=== PATIENT | female | born 1940 | race Hispanic/Latino ===

== ENCOUNTER 2021-12-30 05:52 | Observation (INO) | payer OTHER ==
[2021-12-25 12:13] LABS: BASOPHILS % (AUTO) 0.5 % (0.0-5.0); EOSINOPHILS % (AUTO) 0.9 % (0.0-8.0); HEMATOCRIT 32.2 % (36-48); LYMPHOCYTES % (AUTO) 18.3 % (21.0-51.0); MEAN CORPUSCULAR HGB CONC 31.7 g/dL (32.0-36.0); MEAN CORPUSCULAR VOLUME 88.5 fL (79-99); MONOCYTES % (AUTO) 6.9 % (3.0-13.0); PLATELET COUNT (AUTO) 363 K/uL (130-400); RED BLOOD CELL COUNT(AUTO) 3.64 MIL/uL (4.00-5.50); RED CELL DISTRIBUTION WIDTH 13.8 % (11.0-15.5); WHITE BLOOD COUNT (AUTO) 9.9 K/uL (4.8-10.8)
[2021-12-25 12:22] LABS: INR 1.04 (0.85-1.15); PROTHROMBIN TIME 11.3 SEC (9.6-11.6)
[2021-12-25 12:24] LABS: PARTIAL THROMBOPLASTIN TIME 29.8 SEC (26.3-35.5)
[2021-12-25 12:48] LABS: CREATININE 0.9 mg/dL (0.5-1.5); POTASSIUM 4.5 mmol/L (3.5-5.1)
[2021-12-26 09:37] VITALS: BP 163/81
[~2021-12-30] VITALS: Ht 152.4 cm; Wt 53.3 kg
[2021-12-30] VITALS (29 sets, daily range): BP systolic 103–180; BP diastolic 41–68
[~2021-12-30 05:52] MED LIST: HYDR200T4 PO; LOSA50TA64 PO; OMEP20CA12 PO; TIOT18CA3 IH; [UNRECOGNIZED DRUG - OTHER] PO
[2021-12-30] MEDS ORDERED: TRANEXAMIC ACID 1000MG/10ML IV SCH (06:00)
[2021-12-30] MEDS ORDERED: CEFAZOLIN SODIUM 1 GM VIAL IVP SCH (06:00)
[2021-12-30] MEDS ORDERED: TRANEXAMIC ACID 1000MG/10ML ONE (06:37)
[2021-12-30] MEDS ORDERED: FAMOTIDINE 20MG VIAL IV ONE (06:54)
[2021-12-30] MEDS ORDERED: PHENYLEPHRINE HCL 10 MG/ML 1ML VIAL IV ONE (06:55)
[2021-12-30] MEDS ORDERED: ROPIVACAINE 0.5% 5MG/ML 30ML IJ ONE (06:55)
[2021-12-30] MEDS: LACTATED RINGERS 1000ML 1,000 ML IV SCH ×2 (06:57→12:11)
[2021-12-30] MEDS ORDERED: PROPOFOL 1000 MG/100 ML 100 ML IV ONE ×2 (06:57→09:17)
[2021-12-30] MEDS ORDERED: SUCCINYLCHOLINE CHLORIDE 20 MG/ML 10 ML VIAL ONE (07:06)
[2021-12-30] MEDS ORDERED: ROCURONIUM 10MG/1ML SYR 10 MG/ML ML ONE (07:07)
[2021-12-30] MEDS ORDERED: LIDOCAINE PF 100MG/5ML (2%) SYRINGE 5ML ONE (07:07)
[2021-12-30] MEDS ORDERED: FENTANYL CITRATE PF 50 MCG/1 ML 2ML VIAL ONE (07:12)
[2021-12-30] MEDS ORDERED: HYDROCODONE/ACETAMINOPHEN 10/325 MG TAB PO PRN (07:30)
[2021-12-30] MEDS ORDERED: HYDROCODONE/ACETAMINOPHEN 5/325 MG TAB PO PRN (07:30)
[2021-12-30] MEDS: ACETAMINOPHEN 500 MG TABLET PO SCH ×3 (07:30→23:28)
[2021-12-30] MEDS ORDERED: MORPHINE 4 MG SYG IVP PRN (07:30)
[2021-12-30] MEDS ORDERED: FERROUS FUMARATE 324 MG TABLET PO PRN (07:30)
[2021-12-30] MEDS: 0.9%NACL 1000ML 1,000 ML IV SCH ×2 (07:30→12:03)
[2021-12-30] MEDS ORDERED: CEFAZOLIN SODIUM 2 GM VIAL IV ONE (07:51)
[2021-12-30] MEDS ORDERED: MEPERIDINE-PF 25 MG/ML SYG ONE ×3 (07:55→11:07)
[2021-12-30] MEDS ORDERED: ONDANSETRON 4MG INJ ONE (08:02)
[2021-12-30] MEDS ORDERED: EPHEDRINE SULFATE 50 MG/ML AMPULE ONE (08:16)
[2021-12-30] MEDS: PANTOPRAZOLE 40 MG TAB DR PO SCH (09:00)
[2021-12-30] MEDS: POLYETHYLENE GLYCOL 3350 17 GM POWD.PACK PO SCH (09:00)
[2021-12-30] MEDS: ASPIRIN 81 MG EC TAB PO SCH ×2 (09:00→19:44)
[2021-12-30] MEDS: LOSARTAN 50 MG TABLET PO SCH (09:00)
[2021-12-30] MEDS: FAMOTIDINE 20MG TAB PO SCH ×2 (09:00→19:44)
[2021-12-30] MEDS: HYDROXYCHLOROQUINE SULFATE 200 MG TAB PO SCH (09:00)
[2021-12-30] MEDS ORDERED: PROPOFOL 10 MG/ML 20ML VIAL IV ONE (09:15)
[2021-12-30] MEDS ORDERED: ROPIVICAINE 250MG+KETOROLAC 15MG+EPINEPHRINE 0.3+CLONIDINE 80 IV PRN ×5 (09:40)
[2021-12-30] MEDS ORDERED: GLYCOPYRROLATE 1 MG/5 ML SYRINGE ONE (09:41)
[2021-12-30] MEDS ORDERED: NEOSTIGMINE 5MG/5ML SYR IV ONE (09:41)
[2021-12-30] MEDS: ONDANSETRON 4MG INJ IVP PRN (10:34)
[2021-12-30] MEDS: TRAMADOL HCL 50 MG TABLET PO SCH ×2 (12:02→23:28)
[2021-12-30] MEDS: IPRATROPIUM 0.5 MG/2.5 ML INH IH SCH ×3 (14:08→23:40)
[2021-12-30] MEDS: CEFAZOLIN SODIUM 1 GM VIAL IVP SCH ×2 (15:45→19:44)
[2021-12-31] VITALS (7 sets, daily range): BP systolic 110–157; BP diastolic 46–66
[2021-12-31] MEDS: 0.9%NACL 1000ML 1,000 ML IV SCH (02:39)
[2021-12-31 04:22] LABS: HEMATOCRIT 25.3 % (36-48); MEAN CORPUSCULAR HEMOGLOBIN 28.1 pg (27.0-33.0); MEAN CORPUSCULAR VOLUME 87.8 fL (79-99); RED BLOOD CELL COUNT(AUTO) 2.88 MIL/uL (4.00-5.50); RED CELL DISTRIBUTION WIDTH 13.7 % (11.0-15.5); WHITE BLOOD COUNT (AUTO) 12.1 K/uL (4.8-10.8)
[2021-12-31 04:33] LABS: CREATININE 0.7 mg/dL (0.5-1.5); POTASSIUM 3.9 mmol/L (3.5-5.1)
[2021-12-31] MEDS: TRAMADOL HCL 50 MG TABLET PO SCH ×4 (05:07→23:38)
[2021-12-31] MEDS: IPRATROPIUM 0.5 MG/2.5 ML INH IH SCH ×4 (06:13→23:29)
[2021-12-31] MEDS ORDERED: ROPIVICAINE 250MG+KETOROLAC 15MG+EPINEPHRINE 0.3+CLONIDINE 80 IV PRN ×5 (08:00)
[2021-12-31] MEDS: POLYETHYLENE GLYCOL 3350 17 GM POWD.PACK PO SCH (10:35)
[2021-12-31] MEDS: ASPIRIN 81 MG EC TAB PO SCH ×2 (10:35→20:35)
[2021-12-31] MEDS: FAMOTIDINE 20MG TAB PO SCH ×2 (10:36→20:36)
[2021-12-31] MEDS: LOSARTAN 50 MG TABLET PO SCH (10:36)
[2021-12-31] MEDS: HYDROXYCHLOROQUINE SULFATE 200 MG TAB PO SCH (10:36)
[2021-12-31] MEDS: PANTOPRAZOLE 40 MG TAB DR PO SCH (10:36)
[2021-12-31] MEDS: ACETAMINOPHEN 500 MG TABLET PO SCH ×2 (15:31→20:36)
[2021-12-31] MEDS: KETOROLAC 15MG/ML VIAL (15MG/ML) IV PRN (20:42)
[2022-01-01 04:00] VITALS: BP 106/48
[2022-01-01] MEDS: TRAMADOL HCL 50 MG TABLET PO SCH ×5 (05:56→23:21)
[2022-01-01] MEDS: ACETAMINOPHEN 500 MG TABLET PO SCH ×3 (06:05→21:26)
[2022-01-01] MEDS: IPRATROPIUM 0.5 MG/2.5 ML INH IH SCH ×4 (07:04→23:25)
[2022-01-01 07:10] VITALS: BP 104/48
[2022-01-01] MEDS: ASPIRIN 81 MG EC TAB PO SCH ×2 (09:23→23:04)
[2022-01-01] MEDS: PANTOPRAZOLE 40 MG TAB DR PO SCH (09:23)
[2022-01-01] MEDS: POLYETHYLENE GLYCOL 3350 17 GM POWD.PACK PO SCH (09:23)
[2022-01-01] MEDS: HYDROXYCHLOROQUINE SULFATE 200 MG TAB PO SCH (09:23)
[2022-01-01] MEDS: LOSARTAN 50 MG TABLET PO SCH (09:23)
[2022-01-01] MEDS: FAMOTIDINE 20MG TAB PO SCH ×2 (09:23→21:18)
[2022-01-01] MEDS: KETOROLAC 15MG/ML VIAL (15MG/ML) IV PRN (09:50)
[2022-01-01 10:55] VITALS: BP 109/49
[2022-01-01 15:10] VITALS: BP 109/39
[2022-01-01 19:32] VITALS: BP 123/53
[2022-01-02 00:13] VITALS: BP 97/52
[2022-01-02 03:53] VITALS: BP 115/49
[2022-01-02] MEDS: IPRATROPIUM 0.5 MG/2.5 ML INH IH SCH ×2 (06:21→11:23)
[2022-01-02] MEDS: ACETAMINOPHEN 500 MG TABLET PO SCH (06:31)
[2022-01-02] MEDS: TRAMADOL HCL 50 MG TABLET PO SCH ×2 (06:33→11:46)
[2022-01-02] MEDS ORDERED: BISACODYL 10 MG SUPP.RECT RC PRN (07:30)
[2022-01-02 08:00] VITALS: BP 132/57
[2022-01-02] MEDS: POLYETHYLENE GLYCOL 3350 17 GM POWD.PACK PO SCH (08:21)
[2022-01-02] MEDS: ASPIRIN 81 MG EC TAB PO SCH (08:22)
[2022-01-02] MEDS: HYDROXYCHLOROQUINE SULFATE 200 MG TAB PO SCH (08:22)
[2022-01-02] MEDS: FAMOTIDINE 20MG TAB PO SCH (08:22)
[2022-01-02] MEDS: PANTOPRAZOLE 40 MG TAB DR PO SCH ×2 (08:22→11:43)
[2022-01-02] MEDS: LOSARTAN 50 MG TABLET PO SCH (08:44)
[2022-01-02] MEDS: ONDANSETRON 4MG INJ IVP PRN (11:51)
[2022-01-02 12:00] VITALS: BP 127/57
[2022-01-02 16:00] VITALS: BP 123/54
== END 2022-01-02 16:50 | disposition home or self-care (01) ==
LOC: DAH 05:52 → DAHIP 05:53 → DAH 05:53 → 4DH 11:30
PROVIDERS: ADMIT Orthopaedic Surgery; ATTEND Orthopaedic Surgery
DX: M17.12 Unilateral primary osteoarthritis, left knee (principal); Z20.822 Contact with and (suspected) exposure to COVID-19; M21.062 Valgus deformity, not elsewhere classified, left knee; M24.562 Contracture, left knee; R26.9 Unspecified abnormalities of gait and mobility; I10 Essential (primary) hypertension; K21.9 Gastro-esophageal reflux disease without esophagitis; Z79.899 Other long term (current) drug therapy; Z96.652 Presence of left artificial knee joint
CPT/HCPCS: 0055T; 27447; 36415; 64447; 76942; 80048; 85025; 85027; 85610; 85730; 87635; 87641; 94640; 94664; 96374; 96375; 96376; 97039; C9803; G0378; J0330; J0690; J1885; J2001; J2175; J2370; J2405; J2704; J2710; J2795; J3010; J3490; J7030; J7120